=== PATIENT | female | born 1965 | race Caucasian/White ===

== ENCOUNTER → 2016-06-03 | Outpatient (CLI) | payer OTHER ==
--- NOTE | 2016-06-03 20:55 | ECHO ---
DATE OF PROCEDURE: 06/03/2016 REFERRING PHYSICIAN: Lindsey Woods MD INDICATION: Chemotherapy HEIGHT: 170 cm WEIGHT: 86 kg DIMENSIONS: IVS: 1.2 LV: 5.3 LVPW: 1.1 LA: 3.4 Aorta: 3.2 FINDINGS: The study is of good technical quality. Left ventricle is normal size and systolic function with estimated ejection fraction (EF) 60-65%. Right ventricle is also normal size and systolic function. Both atria appear normal. All four cardiac valves appear normal. No pericardial effusion is noted. Inferior vena cava is normal size. Aortic root, aortic arch and visualized segment of abdominal aorta all appear normal. Doppler interrogation reveals no significant aortic stenosis or insufficiency. There is trace mitral tricuspid and pulmonic insufficiency. Calculated pulmonary artery pressure is within normal limits. Mitral inflow pattern and tissue Doppler imaging of mitral annulus reveal normal diastolic function of ventricle. CONCLUSIONS: 1. Study is of good technical quality. 2. Normal LV size, systolic and diastolic function. 3. No significant valvular disease. 4. Normal central venous pressure and likely normal pulmonary artery pressure. COMMENTS: Subacute bacterial endocarditis (SBE) prophylaxis is not recommended. Essentially normal echocardiogram. MTDD
== END ==
LOC: M CARPUL 09:32
PROVIDERS: ATTEND Internal Medicine Hematology
DX: C50.919 Malignant neoplasm of unspecified site of unspecified female breast (principal); C79.9 Secondary malignant neoplasm of unspecified site

== ENCOUNTER → 2016-08-25 | Outpatient (CLI) | payer OTHER ==
--- NOTE | 2016-08-26 08:26 | ECHO ---
DATE OF PROCEDURE: 08/25/2016 REFERRING PHYSICIAN: Lindsey Woods Study performed on outpatient basis. INDICATION: Chemotherapy. HEIGHT: 145 cm. WEIGHT: 89 kg. DIMENSIONS: IVS: 1.0 LV: 4.6 LVPW: 1.0 LA: 4.1 Aorta: 3.4 FINDINGS: The study is of good technical quality. Left ventricle is normal size and systolic function with estimated LVEF 65-70%. Right ventricle is also normal size and systolic function. Left atrium is mildly enlarged. Right atrium is probably normal. All four cardiac valves were reasonably well seen and appear normal. No pericardial effusion is noted. Inferior vena cava is normal size and appropriately collapses with respiration indicative of normal central venous pressure. Aortic root, aortic arch and abdominal aorta all well seen and appear normal. Doppler interrogation reveals no aortic stenosis or insufficiency. There is trace mitral insufficiency and trace tricuspid insufficiency. Calculated pulmonary artery pressure is within normal limits. Pulmonic valve is functionally competent. Mitral inflow pattern and tissue Doppler imaging of mitral annulus reveal normal diastolic function. CONCLUSIONS: 1. Study is of good technical quality. 2. Normal LV size, normal LV systolic function and normal diastolic function. 3. No significant valvular disease. 4. Normal central venous pressure and likely normal pulmonary artery pressure. COMMENT: SBE prophylaxis is not recommended. Essentially normal echocardiogram.
== END ==
LOC: M CARPUL 09:38
PROVIDERS: ATTEND Internal Medicine Hematology
DX: C50.919 Malignant neoplasm of unspecified site of unspecified female breast (principal); C79.9 Secondary malignant neoplasm of unspecified site

== ENCOUNTER → 2016-11-20 | Outpatient (CLI) | payer OTHER ==
--- NOTE | 2016-11-20 19:43 | ECHO ---
DATE OF PROCEDURE: 11/20/2016 INDICATION: Chemotherapy. HEIGHT: 173 WEIGHT: 84 kg DIMENSIONS: IVS: 1.1 LV: 4.8 LVPW: 1.0 LA: 3.9 Aorta: 3.1 FINDINGS: The study is of good technical quality. Left ventricle is of normal size and systolic function with estimated ejection fraction (EF) around 60-65%. Right ventricle is also normal size and systolic function. Both atria appear normal. Aortic and tricuspid valves are normal. There is mild thickening in the anterior mitral leaflet but mobility is preserved. Pulmonic valve was not well seen. No pericardial effusion is noted. Inferior vena cava is normal size. Aortic root, aortic arch and abdominal aorta appear normal. Doppler interrogation of aortic valve reveals no significant stenosis or insufficiency. There is trace mitral insufficiency and trace tricuspid insufficiency. Calculated pulmonary artery pressure is within normal limits. Pulmonic valve is functionally competent. Pulmonic valve was not well seen. Mitral inflow pattern and tissue Doppler imaging of mitral annulus reveal grade 1 diastolic dysfunction. CONCLUSIONS: 1. Study is of good technical quality. 2. Normal left ventricle (LV) size, normal LV systolic function and grade 1 diastolic dysfunction. 3. No significant valvular disease. 4. Normal central venous pressure and likely normal pulmonary artery pressure. COMMENT: Subacute bacterial endocarditis (SBE) prophylaxis is not recommended. MTDD
== END ==
LOC: M CARPUL 08:53
PROVIDERS: ATTEND Internal Medicine Hematology
DX: C50.919 Malignant neoplasm of unspecified site of unspecified female breast (principal); C79.9 Secondary malignant neoplasm of unspecified site; K59.03 Drug induced constipation; G62.9 Polyneuropathy, unspecified